=== PATIENT | male | born 1970 | race Caucasian/White ===

== ENCOUNTER 2019-07-12 07:30 | Day surgery (SDC) | payer MEDICAID ==
[2019-07-08 09:29] LABS: BASOPHILS # (AUTO) 0.1 X10'3 (0-0.2); BASOPHILS % (AUTO) 1.2 % (0-1); EOSINOPHILS # (AUTO) 0.2 X10'3 (0-0.9); EOSINOPHILS % (AUTO) 3.7 % (0-6); LYMPHOCYTES # (AUTO) 1.3 X10'3 (1.1-4.8); LYMPHOCYTES % (AUTO) 24.9 % (21-51); MEAN CORPUSCULAR HEMOGLOBIN 29.4 PG (27.0-31.0); MEAN CORPUSCULAR HGB CONC 33.5 g/dL (33.0-36.5); MEAN CORPUSCULAR VOLUME 87.8 FL (78-98); MEAN PLATELET VOLUME 7.8 FL (7.4-10.4); MONOCYTES # (AUTO) 0.5 X10'3 (0-0.9); MONOCYTES % (AUTO) 9.3 % (2-12); NEUTROPHILS # (AUTO) 3.3 X10'3 (1.8-7.7); NEUTROPHILS % (AUTO) 60.9 % (42-75); PRE OP HEMOGLOBIN 14.7 g/dL (14.0-17.9); PRE OP PLATELET COUNT 262 X10'3 (140-440); RED BLOOD COUNT 5.01 X10'6 (4.70-6.10); RED CELL DISTRIBUTION WIDTH 14.1 % (11.5-14.5)
[2019-07-08 10:38] LABS: ALBUMIN/GLOBULIN RATIO 1.3 (1.1-1.5); ALKALINE PHOSPHATASE 63 IU/L (46-116); BLOOD UREA NITROGEN 25 MG/DL (7-18); BUN/CREATININE RATIO 22.1 (5.4-32.0); CALCIUM 8.8 MG/DL (8.5-10.1); CHLORIDE 106 MMOL/L (99-107); CREATININE 1.13 MG/DL (0.60-1.10); PRE OP ALT 30 U/L (30-65); PRE OP ANION GAP 8 (8-16); PRE OP AST 21 U/L (10-37); PRE OP BILIRUB, TOTAL 0.4 MG/DL (0.0-1.0); PRE OP GLUCOSE 98 MG/DL (70-104); PRE OP POTASSIUM 3.9 MMOL/L (3.4-5.1); PRE OP SODIUM 143 MMOL/L (135-145); TOTAL CARBON DIOXIDE 28.8 MMOL/L (24-32); TOTAL PROTEIN 7.1 G/DL (6.4-8.2); eGFR 68 ML/MIN
[~2019-07-12] VITALS: Ht 180.3 cm; Wt 90.7 kg
[2019-07-12] VITALS (10 sets, daily range): BP systolic 124–135; BP diastolic 68–78
[~2019-07-12 07:30] MED LIST: BUPIVAcaine/PF 2.5 mg/ml (0.25%) 30ml vial ONE; LIDOcaine 0.5% (5mg/ml) 50ml vial ONE; NO HOME MEDS; cefazolin/dext.iso 2gm/50ml 50 ML IV ONE; famotidine 20mg tablet PO ONE; ringers solution, lacted 1,000 ML IV SCH
[2019-07-12] MEDS ORDERED: ringers solution, lacted 1,000 ML IV SCH (08:12)
[2019-07-12] MEDS ORDERED: ondansetron/PF 4mg/2ml inj IV PRN (08:15)
[2019-07-12] MEDS ORDERED: morphine 2 MG/ML inj. syringe IV PRN (08:15)
[2019-07-12] MEDS ORDERED: hydrALAZINE 20mg/ml inj. IV PRN (08:15)
[2019-07-12] MEDS ORDERED: fentaNYL/PF 50MCG/1 ML 2ML syringe IV PRN ×2 (08:15)
[2019-07-12] MEDS ORDERED: labetalol 20mg/4ml (5mg/ml) syringe IV PRN (08:15)
[2019-07-12] MEDS ORDERED: morphine 4 MG/ML inj SYRINge IV PRN (08:15)
[2019-07-12] MEDS ORDERED: fentaNYL/PF 50MCG/1 ML 2ML syringe ONE (10:44)
[2019-07-12] MEDS ORDERED: MIDAZolam 1mg/ml 10ml vial ONE (10:44)
--- NOTE | 2019-07-12 11:10 | NUR ---
Received from OR via [facility], accompanied by Anesthesiologist DR COATES and report given by Anesthesiologist. PT DROWSY, DENIES PAIN, RIGHT HAND/WRIST W/BIAS DRG COVERING INCISION/DRSG, CDI, FINGERS PWD, RISK INTERN 1-2 SECONDS. Addendum: 07/12/19 at 1129 by Meme Ma RN Amended: Links added.
--- NOTE | 2019-07-12 12:50 | NUR ---
D/C INSTRUCTIONS GIVEN AND GONE OVER W/PT AND PTS WHOM VERBALIZE UNDERSTANDING, PT D/CD TO HOME VIA W/C TO PRIVATE VEHICLE W/O INCIDENT. Addendum: 07/12/19 at 1257 by Meme Ma RN Amended: Links added.
== END 2019-07-12 12:50 | disposition home or self-care (01) ==
LOC: PAS 07:30
PROVIDERS: ATTEND Orthopaedic Surgery Hand Surgery
DX: M25.731 Osteophyte, right wrist (principal); M19.019 Primary osteoarthritis, unspecified shoulder; Z98.890 Other specified postprocedural states; Z88.8 Allergy status to other drugs, medicaments and biological substances; Z79.899 Other long term (current) drug therapy
CPT/HCPCS: 26230; 36415; 80053; 85025; J2001; J2250; J3010; J3490; A4215; J7120